=== PATIENT | male | born 1980 | race Caucasian/White ===

== ENCOUNTER 2016-11-06 14:21 | Inpatient (IN) | payer OTHER ==
[2016-11-06 15:00] VITALS: BMI 20.6
--- NOTE | 2016-11-06 16:22 | HP ---
Admission [facility] Chief Complaint: I need help to stop using heroin. History of Present Illness: 36 y/o m pt with a h/o heroin and alcohol dep. seeking detox . Exam Limitations: No Limitations - Ebola screening Have you traveled outside of the country in the last 21 days: No Have you had contact with anyone from an Ebola affected area: No Have you been sick,other than usual withdrawal symptoms: No Do you have a fever: No - Review of Systems Constitutional: Unintentional Wgt. Loss (15-20 lbs x 2 months) EENT: reports: Blurred Vision, Dental Problems Respiratory: reports: No Symptoms reported Cardiac: reports: No Symptoms Reported GI: reports: Nausea, Poor Appetite, Abdominal cramping : reports: No Symptoms Reported Musculoskeletal: reports: Muscle Pain Integumentary: reports: No Symptoms Reported Neuro: reports: Numbness (rt pinky) Endocrine: reports: No Symptoms Reported Hematology: reports: No Symptoms Reported Psychiatric: reports: Depressed Other Systems: Reviewed and Negative Patient History - Patient Medical History Hx Anemia: No Hx Asthma: No Hx Chronic Obstructive Pulmonary Disease (COPD): No Hx Cancer: No Hx Cardiac Disorders: No Hx Congestive Heart Failure: No Hx Hypertension: No Hx Hypercholesterolemia: No Hx Pacemaker: No HX Cerebrovascular Accident: No Hx Seizures: No Hx Dementia: No Hx Diabetes: No Hx Gastrointestinal Disorders: No Hx Liver Disease: Yes Hx Genitourinary Disorders: No Hx Sexually Transmitted Disorders: No Hx Renal Disease (ESRD): No Hx Thyroid Disease: No Hx Human Immunodeficiency Virus (HIV): No Hx Hepatitis C: Yes (iters undetecable ) Hx Depression: Yes Hx Suicide Attempt: No Hx Bipolar Disorder: No Hx Schizophrenia: No - Patient Surgical History Other Surgical History: rt hip I/D - PPD History Previous Implant?: Yes Documented Results: Negative w/o proof PPD to be Administered?: Yes - Reproductive History Patient is a Female of Child Bearing Age (11 -55 yrs old): No - Smoking Cessation Smoking history: Current every day smoker Have you smoked in the past 12 months: Yes Aproximately how many cigarettes per day: 20 Cigars Per Day: 0 Hx Chewing Tobacco Use: No Initiated information on smoking cessation: Yes 'Breaking Loose' booklet given: 11/06/16 - Substance & Tx. History Hx Alcohol Use: Yes Hx Substance Use: Yes Substance Use Type: Alcohol, Heroin Hx Substance Use Treatment: Yes - Substances Abused Alcohol Route: Oral Frequency: 1-2 times per week Amount used: beer 1-six pk Age of first use: 11 Date of Last Use: 11/05/16 Heroin Route: Injection Frequency: Daily Amount used: 10 bags/d iv Age of first use: 13 Date of Last Use: 11/06/16 Family Disease History - Family Disease History Family Disease History: Other: Father (polycystic kidneys ) Admission Physical Exam [facility] - Vital Signs Vital Signs: Vital Signs - 24 hr 11/06/16 14:57 Temperature 95.7 F L Pulse Rate 163 H Respiratory 18 Rate Blood Pressure 122/74 36 y/o m pt aox3 in nad ambulating . cooperating with exam - Physical General Appearance: Yes: Disheveled, Thin, Sweating, Anxious HEENTM: Yes: EOMI, Hearing grossly Normal, Normocephalic, Normal Voice, JACKIE Respiratory: Yes: Chest Non-Tender, Wheezing Neck: Yes: Supple, Trachea in good position Breast: Yes: Within Normal Limits Cardiology: Yes: Regular Rhythm, Regular Rate, S1, S2 Abdominal: Yes: Non Tender, Flat, Soft, Increased Bowel Sounds Genitourinary: Yes: Within Normal Limits Back: Yes: Decreased Range of Motion Musculoskeletal: Yes: Muscle Pain Extremities: Yes: Within Normal Limits Neurological: Yes: river guide II-XII NML intact, Fully Oriented, Alert, Motor Strength 5/5, Normal Response, Numbness Integumentary: Yes: Moist, Track [place]ino (rich forearms) Lymphatic: Yes: Within Normal Limits - Addiitonal Findings: rt pinky - Diagnostic (1) Heroin use disorder, severe, dependence Current Visit: Yes Status: Chronic (2) Alcohol abuse Current Visit: Yes Status: Chronic (3) Anxiety Current Visit: Yes Status: Chronic (4) Nicotine dependence Current Visit: Yes Status: Chronic Qualifiers: Nicotine product type: cigarettes Substance use status: uncomplicated Qualified Code(s): F17.210 - Nicotine dependence, cigarettes, uncomplicated Cleared for Admission [facility] - Detox or Rehab [facility] Level of Care: Medically Managed Detox Regimen/Protocol: Methadone [facility] Breath Alcohol Content Breath Alcohol Content: 0 Urine Drug Screen - Results Drug Screen Negative: No Urine Drug Screen Results: OPI-Opiates, MTD-Methadone, OXY-Oxycodone
[2016-11-06] MEDS ORDERED: ACETAMINOPHEN 325 MG TABLET (FP) PO PRN (16:41)
[2016-11-06] MEDS ORDERED: LOPERAMIDE HCL 2 MG CAPSULE PO PRN (16:41)
[2016-11-06] MEDS ORDERED: MAGNESIUM HYDROX 2400MG/30ML ORAL SUSPENSION 30 ML CUP PO PRN (16:41)
[2016-11-06] MEDS ORDERED: IBUPROFEN 400 MG TABLET (FP) PO PRN (16:41)
[2016-11-06] MEDS ORDERED: guaiFENesin/D-METHORPHAN HB 10 ML UNIT-DOSE CUPS PO PRN (16:41)
[2016-11-06] MEDS ORDERED: NICOTINE POLACRILEX 4 MG GUM BC PRN (16:41)
[2016-11-06] MEDS ORDERED: METHADONE HCL 10 MG TABLET (FOR DETOX USE ONLY) PO ONE ×2 (16:41→23:00)
[2016-11-06] MEDS ORDERED: MENTHOL/PHENOL 1 EACH UD MM PRN (16:41)
[2016-11-06] MEDS ORDERED: P-EPHED 60MG/TRIPROLIDI 2.5MG TABLET PO PRN (16:41)
[2016-11-06] MEDS ORDERED: diphenhydrAMINE HCL 50 MG CAPSULE PO PRN (16:41)
[2016-11-06] MEDS ORDERED: hydrOXYzine PAMOATE 25 MG CAPSULE (FP) PO PRN (16:41)
[2016-11-06] MEDS ORDERED: MAGNESIUM CITRATE 300 ML BOTTLE PO PRN (16:41)
[2016-11-06] MEDS ORDERED: MAG HYDROX/AL HYDROX/SIMETH 30 ML UNIT-DOSE CUP PO PRN (16:41)
[2016-11-06] MEDS ORDERED: ALBUTEROL SO4 6.7 GM HFA INHALER IH PRN (16:44)
[2016-11-06] MEDS ORDERED: METHADONE HCL 10 MG TABLET (FOR DETOX USE ONLY) ONE (19:58)
[2016-11-06] MEDS: diazePAM 5 MG TABLET PO PRN (20:05)
[2016-11-06] MEDS: THIAMINE HCL 100 MG TABLET (FP) PO SCH (22:10)
[2016-11-06 22:42] LABS: URINE APPEARANCE CLEAR; URINE BILIRUBIN NEGATIVE (NEGATIVE); URINE COLOR YELLOW; URINE GLUCOSE (UA) NEGATIVE (NEGATIVE); URINE KETONE NEGATIVE (NEGATIVE); URINE LEUK ESTERASE NEGATIVE (NEGATIVE); URINE NITRITE NEGATIVE (NEGATIVE); URINE PROTEIN NEGATIVE (NEGATIVE); URINE UROBILINOGEN NEGATIVE E.U./dl (0.2-1.0)
[2016-11-06 22:44] LABS: URINE BLOOD 2+ (NEGATIVE)
[2016-11-06 22:55] LABS: URINE MUCUS RARE; URINE RBC 15 /hpf (0-3); URINE WBC 2 /hpf (3-5)
[2016-11-07] MEDS: diazePAM 5 MG TABLET PO PRN ×2 (05:49→22:11)
--- NOTE | 2016-11-07 08:25 | EKG ---
Test Reason : Blood Pressure : / mmHG Vent. Rate : 053 BPM Atrial Rate : 053 BPM P-R Int : 156 ms QRS Dur : 100 ms QT Int : 412 ms P-R-T Axes : 057 -12 058 degrees QTc Int : 386 ms SINUS BRADYCARDIA INCOMPLETE RIGHT BUNDLE BRANCH BLOCK BORDERLINE ECG NO PREVIOUS ECGS AVAILABLE Confirmed by OSIEL FARIA, FRANCESCA ([id number]) on 11/07/2016 8:24:53 AM Referred By: Diego Osborn Confirmed By:FRANCESCA CARTAGENA MD
[2016-11-07] MEDS ORDERED: METHADONE HCL 10 MG TABLET (FOR DETOX USE ONLY) PO ONE (10:00)
--- NOTE | 2016-11-07 10:31 | PN ---
BHS COWS - Scale Resting Pulse: 0= MA 80 or Below Sweatin= Chills/Flushing Restless Observation: 3= Extraneous Movement Pupil Size: 2= Moderately Dilated Bone or Joint Aches: 4=Acute Joint/Muscle Pain Runny Nose/ Eye Tearin= Nasal Congestion GI Upset > 30mins: 1= Stomach Cramp Tremor Observation of Outstretched Hands: 1= Tremor [place], Not Seen Yawning Observation: 0= None Anxiety or Irritability: 2=Irritable/Anxious Goose Flesh Skin: 0=Smooth Skin COWS Score: 15 BHS Progress Note (SOAP) Subjective: ANXIETY,SWEATS,IRRITABILITY. Objective: 11/07/16 10:30 Vital Signs Temperature 97.4 F L 11/07/16 10:17 Pulse Rate 80 11/07/16 10:17 Respiratory Rate 18 11/07/16 10:17 Blood Pressure 112/78 11/07/16 10:17 O2 Sat by Pulse Oximetry (%) Laboratory Last Values Urine Color Yellow 11/06/16 20:00 Urine Appearance Clear 11/06/16 20:00 Urine pH 5.0 (5.0-8.0) 11/06/16 20:00 Ur Specific [place] 1.024 (1.001-1.035) 11/06/16 20:00 Urine Protein Negative (NEGATIVE) 11/06/16 20:00 Urine Glucose (UA) Negative (NEGATIVE) 11/06/16 20:00 Urine Ketones Negative (NEGATIVE) 11/06/16 20:00 Urine Blood 2+ (NEGATIVE) H 11/06/16 20:00 Urine Nitrite Negative (NEGATIVE) 11/06/16 20:00 Urine Bilirubin Negative (NEGATIVE) 11/06/16 20:00 Urine Urobilinogen Negative E.U./dl (0.2-1.0) 11/06/16 20:00 Ur Leukocyte Esterase Negative (NEGATIVE) 11/06/16 20:00 Urine RBC 15 /hpf (0-3) 11/06/16 20:00 Urine WBC 2 /hpf (3-5) 11/06/16 20:00 Urine Mucus Rare 11/06/16 20:00 Assessment: 11/07/16 10:30 WITHDRAWAL SX Plan: CONTINUE DETOX
[2016-11-07 10:45] LABS: MCH 29.3 pg (25.7-33.7); MCHC 32.5 g/dl (32.0-35.9); MEAN CELL VOLUME 90.3 fl (80-96); MEAN PLT VOLUME 9.7 fl (7.5-11.1); PLATELET COUNT 157 K/MM3 (134-434); RDW 13.5 % (11.9-15.9); WHITE BLOOD COUNT 5.3 K/mm3 (4.0-10.0)
[2016-11-07 11:00] LABS: ALBUMIN 3.4 g/dl (3.4-5.0); ALK PHOS 71 U/L (45-117); ANION GAP 9 (8-16); BILIRUBIN,TOTAL 0.2 mg/dL (0.2-1.0); CALCIUM 8.7 mg/dL (8.5-10.1); CO2 28 mmol/L (21-32); COCKROFT - GAULT 94.34; GLUCOSE,RANDOM 89 mg/dL (74-106); SGPT/ALT 20 U/L (12-78); TOT PROT 6.4 g/dl (6.4-8.2)
[2016-11-07] MEDS: NICOTINE 21 MG/24 HOURS TOPICAL PATCH TD SCH (11:04)
[2016-11-07] MEDS: PRENATAL VITAMINS W/ FOLIC ACID TABLET (FP) PO SCH (11:04)
[2016-11-07 11:23] LABS: SGOT/AST 18 U/L (15-37)
--- NOTE | 2016-11-07 15:41 | CONSULT ---
[facility] Psychiatric Consult - Data Date of interview: 11/07/16 Admission source: [facility] Identifying data: Readsion to [facility] for this 36 y/o male seeking detox treatment for alcohol and heroin dependence.Patient is single,a father of four,domiciled,unemployed and currently collecting unemployment benefits. Substance Abuse History: - Smoking Cessation. Smoking history: Current every day smoker. Have you smoked in the past 12 months: Yes. Aproximately how many cigarettes per day: 20. Cigars Per Day: 0. Hx Chewing Tobacco Use: No. Initiated information on smoking cessation: Yes. 'Breaking Loose' booklet given : 11/06/16. - Substance & Tx. History. Hx Alcohol Use: Yes. Hx Substance Use : Yes. Substance Use Type: Alcohol, Heroin. Hx Substance Use Treatment: Yes. - Substances Abused. Alcohol. Route: Oral. Frequency: 1-2 times per week. Amount used: beer 1-six pk. Age of first use: 11. Date of Last Use: . Heroin. Route: Injection. Frequency: Daily. Amount used: 10 bags/d iv. Age of first use: 13. Date of Last Use: 11/06/16. Confirmed by patient. Medical History: Hepatitis C. Psychiatric History: Patient denies. Physical/Sexual Abuse/Trauma History: Patient denies. Additional Comment: Urine Drug Screen Results: OPI-Opiates, MTD-Methadone, OXY- Oxycodone.Noted. Mental Status Exam - Mental Status Exam Alert and Oriented to: Time, Place, Person Cognitive Function: Good Patient Appearance: Well Groomed Mood: Hopeful, Euthymic Affect: Appropriate, Normal Range Patient Behavior: Fatigued, Appropriate, Cooperative Speech Pattern: Clear, Appropriate Voice Loudness: Normal Thought Process: Goal Oriented Thought Disorder: Not Present Hallucinations: Denies Suicidal Ideation: Denies Homicidal Ideation: Denies Insight/Judgement: Poor Sleep: Fair Appetite: Good Muscle strength/Tone: Normal Gait/Station: Normal Psychiatric Findings - Problem List ([place] 1, 2,3) (1) Alcohol dependence Status: Acute (2) Opioid dependence Status: Acute (3) Nicotine dependence Status: Acute Qualifiers: Nicotine product type: cigarettes Substance use status: uncomplicated Qualified Code(s): F17.210 - Nicotine dependence, cigarettes, uncomplicated - Initial Treatment Plan Initial Treatment Plan: Psychoeducation.Detoxification.Observation.
[2016-11-07] MEDS: THIAMINE HCL 100 MG TABLET (FP) PO SCH (22:10)
[2016-11-08] MEDS: diazePAM 5 MG TABLET PO PRN (05:42)
[2016-11-08 09:22] VITALS: BP 129/98; PULSE 68; TEMP 95.9
[2016-11-08] MEDS ORDERED: METHADONE HCL 5 MG TABLET (FOR DETOX USE ONLY) PO ONE (10:00)
[2016-11-08] MEDS: PRENATAL VITAMINS W/ FOLIC ACID TABLET (FP) PO SCH (10:05)
[2016-11-08] MEDS: NICOTINE 21 MG/24 HOURS TOPICAL PATCH TD SCH (10:06)
--- NOTE | 2016-11-08 11:31 | DS ---
[facility] Detox Discharge Summary Admission Date: 11/06/16 Discharge Date: 11/08/16 - History Present History: Alcohol Dependence (ALCOHOL ABUSE), Opioid Dependence Additional Comments: PT DECLINED TO CONTINUE WITH DETOX STATING "I DON'T WANT ANYONE QUESTIONING ME. I JUST WANNA LEAVE". PT REMINDED THE NEED TO BE SOBER FROM DRUGS AND NEED FOR TREATMENT. ALERT O X 3. NAD. Pertinent Past History: HEP C - Physical Exam Results Vital Signs: Vital Signs Temperature 95.9 F L 11/08/16 09:21 Pulse Rate 68 11/08/16 09:21 Respiratory Rate 18 11/08/16 09:21 Blood Pressure 129/98 11/08/16 09:21 O2 Sat by Pulse Oximetry (%) Pertinent Admission Physical Exam Findings: WITHDRAWAL SX Laboratory Last Values WBC 5.3 K/mm3 (4.0-10.0) 11/07/16 07:00 RBC 4.65 M/mm3 (4.00-5.60) 11/07/16 07:00 Hgb 13.6 GM/dL (11.7-16.9) 11/07/16 07:00 Hct 42.0 % (35.4-49) 11/07/16 07:00 MCV 90.3 fl (80-96) 11/07/16 07:00 MCHC 32.5 g/dl (32.0-35.9) 11/07/16 07:00 RDW 13.5 % (11.9-15.9) 11/07/16 07:00 Plt Count 157 K/MM3 (134-434) 11/07/16 07:00 MPV 9.7 fl (7.5-11.1) 11/07/16 07:00 Sodium 140 mmol/L (136-145) 11/07/16 07:00 Potassium 3.8 mmol/L (3.5-5.1) 11/07/16 07:00 Chloride 103 mmol/L (98-107) 11/07/16 07:00 Carbon Dioxide 28 mmol/L (21-32) 11/07/16 07:00 Anion Gap 9 (8-16) 11/07/16 07:00 BUN 19 mg/dL (7-18) H 11/07/16 07:00 Creatinine 1.0 mg/dL (0.7-1.3) 11/07/16 07:00 Creat Clearance w eGFR > 60 (>60) 11/07/16 07:00 Random Glucose 89 mg/dL (74-106) 11/07/16 07:00 Calcium 8.7 mg/dL (8.5-10.1) 11/07/16 07:00 Total Bilirubin 0.2 mg/dL (0.2-1.0) 11/07/16 07:00 AST 18 U/L (15-37) 11/07/16 07:00 ALT 20 U/L (12-78) 11/07/16 07:00 Alkaline Phosphatase 71 U/L (45-117) 11/07/16 07:00 Total Protein 6.4 g/dl (6.4-8.2) 11/07/16 07:00 Albumin 3.4 g/dl (3.4-5.0) 11/07/16 07:00 Urine Color Yellow 11/06/16 20:00 Urine Appearance Clear 11/06/16 20:00 Urine pH 5.0 (5.0-8.0) 11/06/16 20:00 Ur Specific [place] 1.024 (1.001-1.035) 11/06/16 20:00 Urine Protein Negative (NEGATIVE) 11/06/16 20:00 Urine Glucose (UA) Negative (NEGATIVE) 11/06/16 20:00 Urine Ketones Negative (NEGATIVE) 11/06/16 20:00 Urine Blood 2+ (NEGATIVE) H 11/06/16 20:00 Urine Nitrite Negative (NEGATIVE) 11/06/16 20:00 Urine Bilirubin Negative (NEGATIVE) 11/06/16 20:00 Urine Urobilinogen Negative E.U./dl (0.2-1.0) 11/06/16 20:00 Ur Leukocyte Esterase Negative (NEGATIVE) 11/06/16 20:00 Urine RBC 15 /hpf (0-3) 11/06/16 20:00 Urine WBC 2 /hpf (3-5) 11/06/16 20:00 Urine Mucus Rare 11/06/16 20:00 RPR Titer Nonreactive (NONREACTIVE) 11/07/16 07:00 - Treatment Hospital Course: Discharged Condition Good Patient has Accepted a Rehab Referral to: REFUSED - Medication Discharge Medications: Ambulatory Orders NK [No Known Home Medication] 11/06/16 - AMA Did Patient Leave Against Medical Advice: Yes (JEAN-CLAUDE)
[2016-11-09] MEDS ORDERED: METHADONE HCL 5 MG TABLET (FOR DETOX USE ONLY) PO ONE (10:00)
[2016-11-10] MEDS ORDERED: METHADONE HCL 10 MG TABLET (FOR DETOX USE ONLY) PO ONE (10:00)
[2016-11-11] MEDS ORDERED: METHADONE HCL 5 MG TABLET (FOR DETOX USE ONLY) PO ONE (06:00)
== END 2016-11-08 15:10 | disposition left against medical advice (07) | DRG 770 ==
LOC: YASAS 14:21 → Y3N 19:14
PROVIDERS: ADMIT Internal Medicine; ATTEND Internal Medicine
PROC: HZ2ZZZZ Detoxification Services for Substance Abuse Treatment (ICD-10-PCS; principal; 2016-11-06)
DX: F11.23 Opioid dependence with withdrawal (principal); F10.230 Alcohol dependence with withdrawal, uncomplicated; F17.210 Nicotine dependence, cigarettes, uncomplicated; F41.9 Anxiety disorder, unspecified; K76.9 Liver disease, unspecified; Z59.0 Homelessness
CPT/HCPCS: 36415; 71020-TC; 80053; 81003; 81015; 85027; 86593; 93005; 93010